=== PATIENT | female | born 1990 | race American Indian/Alaskan Native ===

== ENCOUNTER 2018-01-06 02:17 | Inpatient (IN) | payer MEDICAID, OTHER ==
[2018-01-06 03:30] VITALS: BMI 25.8
[2018-01-06] MEDS ORDERED: Lactated Ringer's 2,000 ML IV ONE (03:53)
--- NOTE | 2018-01-06 03:59 | OBHP ---
Datetime: 01/06/2018 03:57 IP Adm Impression: Term, intrauterine IP Admit Plan: Admit to unit; Initiate labor protocol Admit Comment, IP Provider: 19 yo at 38+4 wks in labor. FHT reassuring. GBS negative. Anticipate VD. H_P dictated, "[id number]" (ES) Extremities - PN: Normal Abdomen - PN: Normal Back - PN: Normal Lungs - PN: Normal Heart - PN: Normal Thyroid - PN: Normal Neurologic - PN: Normal HEENT - PN: Normal General - PN: Normal FHR - Baseline A Provider: 130's Membranes, Provider: Kory EGA AdmitDate IP: 38.4 Vital Signs Provider: Reviewed IP Indication for Induction: Not Applicable IP Chief Complaint: Uterine contractions NICHD Variability Prov Fetus A: Moderate 6-25bpm NICHD Accel Fetus A IP Provider: 15X15 FHR Category Provider Fetus A: Category I NICHD Decel Fetus A IP Provider: None Dilatation, Provider: 3-4 Effacement, Provider: 75 Station, Provider: -3 Genitourinary Exam: Normal
[2018-01-06] MEDS ORDERED: Lactated Ringer's 1,000 ML IV SCH (04:00)
[2018-01-06 04:31] LABS: BASO % 0.3 % (0.0-2.0); EOS % 0.4 % (0.0-4.0); HEMOGLOBIN 10.9 g/dL (12.0-16.0); LYMPH % 18.3 % (20.0-40.0); MEAN CELL VOLUME 93.8 fl (81.0-99.0); MEAN CORPUSCULAR HEMOGLOBIN 31.6 pg (27.0-31.0); MEAN CORPUSCULAR HGB CONC 33.7 g/dL (33.0-37.0); MEAN PLATELET VOLUME 10.7 fl (7.2-11.7); MONO # 0.7 K/uL (0.0-0.8); MONO % 6.4 % (0.0-10.0); NEUT % 74.6 % (50.0-75.0); NRBC % 0.2 % (0.0-0.0); RBC 3.46 Mil/uL (3.80-5.20); RED CELL DISTRIBUTION WIDTH 14.2 % (11.5-14.5); WHITE BLOOD COUNT 10.8 K/uL (4.8-10.8)
[2018-01-06 05:46] VITALS: RESP 20; O2SAT 98
--- NOTE | 2018-01-06 14:18 | HP ---
Copied To: Anahi Ramos MD Attending MD: Anahi Ramos MD HISTORY OF PRESENT ILLNESS: This is a 27-year-old G7, P6-0-0-6 at 38 weeks and four days with an EDC of 01/16/2018 by last menstrual period, who presents with contractions every five minutes. Denies vaginal bleeding and leaking of fluid, and reports positive movement. This patient received her care at [facility] with Dr. Weir. She started her care at 31 weeks and she is varicella nonimmune. GBS was done on 12/15/2017 and that was negative. PAST MEDICAL HISTORY: Healthy. PAST SURGICAL HISTORY: None. Her EDC is 01/16/2018 based on her period consistent with a 32 plus week ultrasound. MEDICATIONS: vitamins. ALLERGIES: NO KNOWN DRUG ALLERGIES. FAMILY HISTORY: Noncontributory. OBSTETRICAL HISTORY: In 2007, she had a vaginal delivery of a male , weighing 8 pounds 7 ounces. In 2010, she had a vaginal delivery of a male , weighing 8 pounds 10 ounces. In 2011, she had a vaginal delivery of a boy, weighing 8 pounds 2 ounces. In 2013, she had a vaginal delivery of a boy, weighing 8 pounds 10 ounces. In 2014, she had a vaginal delivery of a boy, weighing 8 pounds 2 ounces. In 2016, she had a vaginal delivery of a girl, weighing 8 pounds 2 ounces. GYNECOLOGICAL HISTORY: Menarche at 10, regular periods. No STDs. Denies abnormal Paps. SOCIAL HISTORY: Denies tobacco, alcohol, or illicit drug use. LABORATORIES: On 11/08/2017, O positive, no antibodies detected. Cystic fibrosis is negative. Hemoglobin electrophoresis was normal. Urine culture was positive for over 100,000 E. coli. Hepatitis B surface antigen was nonreactive. SMA was negative. HIV was nonreactive. Fragile X was negative. Varicella-zoster IgG was negative. Rubella IgG positive. RPR nonreactive. Chlamydia and gonorrhea not detected. One-hour Glucola was 65. On 11/17/2017, Chlamydia and gonorrhea were negative. Pap was negative, and on 12/15/2017, her GBS was negative. PHYSICAL EXAMINATION: VITAL SIGNS: Afebrile. Vital signs are stable. GENERAL: The patient appears comfortable, sitting up in bed. HEART: Regular rate and rhythm. CHEST AND LUNGS: Clear to auscultation bilaterally. ABDOMEN: Soft and nontender. Gravid. EXTREMITIES: Nontender. GENITOURINARY: Vaginal exam is 3 to 4 cm dilated, 75%, -3 station with a bulging bag at 03:25 a.m. External monitoring: Baseline in the 130s with moderate variability. Positive accelerations. Tocodynamometer: Difficult to discern when she is sudeep. ASSESSMENT AND PLAN: This is a 27-year-old G7, P6-0-0-6 at 38 weeks and four days, in labor. heart tracing is reassuring. Group B streptococcus negative. Anticipate vaginal delivery. Anahi Ramos MD MTDD
--- NOTE | 2018-01-06 19:05 | OBPN ---
Datetime: 01/06/2018 18:46 IP Procedures: Artificial ROM; Sterile Vag Exam IP Progress Plan: Continue present management; Augmentation Membranes, Provider: Ruptured (Annotations: Data stored by CPN on behalf of user) Amniotic Fluid Color, Provider: Clear Contraction Comments Provider: Q2-5min FHR - Baseline A Provider: 120s-130s IP Progress Note Comment: AROM clear fluid. Category 1 heart tracing. Continue current managem ent. Discussed plan with patient all patient questions answered. Vital Signs Provider: Reviewed; Within Normal Limits NICHD Accel Fetus A IP Provider: 15X15 FHR Category Provider Fetus A: Category I NICHD Variability Prov Fetus A: Moderate 6-25bpm Dilatation, Provider: 7 Effacement, Provider: 50 Station, Provider: -1 NICHD Decel Fetus A IP Provider: None
[2018-01-06] MEDS ORDERED: Oxycodone/Acetaminophen 5/325 mg Tab PO PRN ×4 (20:08→21:41)
[2018-01-06] MEDS ORDERED: Benzocaine/Menthol SPRAY TOP PRN ×2 (20:08→21:41)
--- NOTE | 2018-01-06 22:11 | OBDS ---
DELIVERY PERSONNEL Delivery Doctor: Jose Alberto Weir MD Senior Customer Service Representative: Karissa Jovel RN Resident: RUSTY Farfan MATERNAL INFORMATION Delivery Anesthesia: None Medications in Delivery: Pitocin 30 mu/500 mL Estimated Blood Loss (ml): 200 Placenta Cultured: No Maternal Complications: None Provider Comments: Normal spontaneous vaginal delivery. Patient delivered viable with Apgars of 9 and 9 at one and 5 minutes respectively. Perineum intact, no lacerations. Placenta delivered spontaneously. Uterus firm and appropriately hemostatic f ollowing delivery. Patient tolerated delivery well. No complications. Estimated blood loss 200 mL. LABOR SUMMARY EDC: 01/16/2018 00:00 No. Babies in Womb: 1 Attempted: No Labor Anesthesia: None LABOR INFORMATION Reason for Induction: Not Applicable Onset of Labor: 01/06/2018 01:00 Complete Dilatation: 01/06/2018 19:17 Oxytocin: Augmentation Group B Beta Strep: Negative Antibiotics # of Doses: 0 Antibiotics Time of Last Dose: n/a Steroids Given: None Reason Steroids Not Administered: Not Applicable MEMBRANES Membranes Rupture Method: Artificial Rupture of Membranes: 01/06/2018 18:43 Length of Rupture (hrs): 0.58 Amniotic Fluid Color: Clear Amniotic Fluid Amount: Large Amniotic Fluid Odor: Normal STAGES OF LABOR Stage 1 hrs: 18 Stage 1 min: 17 Stage 2 hrs: 0 Stage 2 min: 1 Stage 3 hrs: 0 Stage 3 min: 8 Total Time in Labor hrs: 18 Total Time in Labor min: 26 VAGINAL DELIVERY Episiotomy: None Laceration Extension: N/A Laceration Type: None Laceration Repair: Not Applicable Initial Vag Sponge Count: 15 Final Vag Sponge Count: 15 Initial Vag Sharps Count: 0 Final Vag Sharps Count: 0 Sponge Count Correct: Yes Sharps Count Correct: N/A Count Comment: count correct BABY A INFORMATION Delivery Date/Time: 01/06/2018 19:18 Method of Delivery: Vaginal Born in Route : No : N/A Forceps: Outlet Vacuum Extraction: N/A Shoulder Dystocia : No SHOULDER DYSTOCIA BABY A Infant Delivery Date/Time: 01/06/2018 19:18 PRESENTATION/POSITION BABY A Presentation: Cephalic Cephalic Presentation: Vertex Breech Presentation: N/A PLACENTA INFORMATION BABY A Placenta Delivery Time : 01/06/2018 19:26 Placenta Method of Delivery: Spontaneous Placenta Status: Delivered SCORES BABY A Heart Rate 1 min: >100 bpm Resp Effort 1 min: Good Cry Reflex Irritability 1 min: Cough or Sneeze or Pulls Away Muscle Tone 1 min: Active Motion Color 1 min: Body [place], Extremities Blue Resuscitation Effort 1 min: N/A SCORE 1 MIN: 9 Heart Rate 5 min: >100 bpm Resp Effort 5 min: Good Cry Reflex Irritability 5 min: Cough or Sneeze or Pulls Away Muscle Tone 5 min: Active Motion Color 5 min: Body [place], Extremities Blue Resuscitation Effort 5 min: N/A SCORE 5 MIN: 9 INFORMATION BABY A Gestational Age at Delivery: 38.4 Gestational Status: Term Outcome : Liveborn Infant Condition : Stable Infant Sex: Male IDENTIFICATION/MEDS BABY A ID Band Number: [id number] ID Band Location: Left Leg; Left Arm Vitamin K Given : Aquamephyton 1 mg IM Erythromycin Given: Given Both Eyes WEIGHT/LENGTH BABY A Birthweight (gms): 3640 Weight (lb): 8 Infant Weight (oz): 0 Length Inches: 21.00 Infant Length cms: 53.3 CORD INFORMATION BABY A No. Cord Vessels: 3 Nuchal Cord : Around Neck x1, Loose Cord Blood Taken: Yes Infant Suction: Mouth; Nose ASSESSMENT BABY A Infant Complications: None Physical Findings at Delivery: Within Normal Limits Physical Findings Other: dr ortiz , assessed the at bedside after delivery Respirations: Appears Normal Composition Teacher/ALS Called : No Infant Care By: adana JAMMOTT RN Transferred To: [facility] RESUSCITATION BABY A Resuscitation Effort: Tactile Stimulation
[2018-01-07 03:37] LABS: BARBITURATES, UR NEGATIVE (NEGATIVE); BENZODIAZEPINES, UR NEGATIVE (NEGATIVE); OPIATES, UR NEGATIVE (NEGATIVE); PHENCYCLIDINE, UR NEGATIVE (NEGATIVE)
[2018-01-07 07:06] LABS: BASO % 0.4 % (0.0-2.0); EOS # 0.1 K/uL (0.0-0.7); EOS % 0.4 % (0.0-4.0); HEMOGLOBIN 10.3 g/dL (12.0-16.0); LYMPH # 1.9 K/uL (1.0-4.3); LYMPH % 15.6 % (20.0-40.0); MEAN CELL VOLUME 94.1 fl (81.0-99.0); MEAN CORPUSCULAR HEMOGLOBIN 31.3 pg (27.0-31.0); MEAN CORPUSCULAR HGB CONC 33.3 g/dL (33.0-37.0); MEAN PLATELET VOLUME 10.4 fl (7.2-11.7); MONO % 7.7 % (0.0-10.0); NEUT # 9.4 K/uL (1.8-7.0); NEUT % 75.9 % (50.0-75.0); RBC 3.29 Mil/uL (3.80-5.20); RED CELL DISTRIBUTION WIDTH 14.1 % (11.5-14.5); WHITE BLOOD COUNT 12.4 K/uL (4.8-10.8)
--- NOTE | 2018-01-07 07:55 | OBPPN ---
Datetime: 01/07/2018 07:50 PP Pain Prov: Within normal limits PP Nausea Prov: Denies PP Abdomen/Uterus Prov: Normal PP Lochia Prov: Normal PP Extremities Prov: Normal PP Impression Prov: Normal progression PP Plan Prov: Continue present management PP Progress Note Prov: PPD 1 s/p , doing well, bottle feeding Continue current care Vital Signs Provider PP: Reviewed
[2018-01-07] MEDS: Multivitamin With Minerals Tab PO SCH (08:24)
[2018-01-07] MEDS ORDERED: Multivitamin With Minerals Tab PO SCH (09:00)
[2018-01-08] MEDS: Multivitamin With Minerals Tab PO SCH (08:56)
--- NOTE | 2018-01-08 11:30 | OBPPN ---
Datetime: 01/08/2018 11:27 PP Pain Prov: Within normal limits PP Nausea Prov: Denies PP Flatus Prov: Yes PP Breasts Prov: Normal PP Heart Prov: Normal PP Lungs Prov: Normal PP Abdomen/Uterus Prov: Normal PP Lochia Prov: Normal PP Vulva/Perineum Prov: Normal PP CVA Tenderness Prov: Normal PP Extremities Prov: Normal PP Comments Phys Exam Prov: Fundus firm under umbilicus PP Impression Prov: Normal progression PP Plan Prov: Continue present management PP Progress Note Prov: Patient denies CP, no SOB, no N/V, tolerating PO diet, ambulating/voiding wel l, mild lochia, abdominal pain tolerable with meds A/P PPD #2 1. discharge home 2. DIscharge instructions reviewed IP PP Procedures: None Vital Signs Provider PP: Reviewed; Within Normal Limits
--- NOTE | 2018-01-08 11:30 | OBDCSUM ---
Datetime: 01/08/2018 11:28 Discharged to, Provider: Home Follow up at, Provider: OB Disch Instr Activity: Normal activity Disch Instr Diet: Regular Discharge Instructions, Provider: Routine instructions given Discharge Diagnosis, Provider: Term Delivered Discharge Time: 01/08/2018 11:28 Follow up in weeks, Provider: 6 wks Disch Referrals: None Contraception discussed, Prov: Yes
[2018-01-08 22:14] VITALS: BP 100/77; PULSE 90; TEMP 98
== END 2018-01-08 16:20 | disposition home or self-care (01) | DRG 373 ==
LOC: H.EROB2 02:17 → H.L&D 03:30 → H.OB/GYN 21:30
PROVIDERS: ADMIT Obstetrics & Gynecology; ATTEND Obstetrics & Gynecology
PROC: 10E0XZZ Delivery of Products of Conception, External Approach (ICD-10-PCS; principal; 2018-01-06)
PROC: 10907ZC Drainage of Amniotic Fluid, Therapeutic from Products of Conception, Via Natural or Artificial Opening (ICD-10-PCS; 2018-01-06)
PROC: 4A1HXCZ Monitoring of Products of Conception, Cardiac Rate, External Approach (ICD-10-PCS; 2018-01-06)
DX: O69.81X0 Labor and delivery complicated by cord around neck, without compression, not applicable or unspecified (principal); Z3A.38 38 weeks gestation of pregnancy; Z37.0 Single live birth